=== PATIENT | male | born 1975 | race Caucasian/White ===

== ENCOUNTER 2017-02-06 17:45 | Emergency (ER) | payer OTHER | END 2017-02-06 20:00 | disposition home or self-care (01) | LOC: CED 17:45 | DX: T40.1X1A Poisoning by heroin, accidental (unintentional), initial encounter (principal); F17.200 Nicotine dependence, unspecified, uncomplicated | CPT/HCPCS: 99283 ==

== ENCOUNTER 2017-02-12 20:40 | Emergency (ER) | payer OTHER | END 2017-02-13 01:30 | disposition home or self-care (01) | LOC: CED 20:40 | DX: T40.1X1A Poisoning by heroin, accidental (unintentional), initial encounter (principal); F17.210 Nicotine dependence, cigarettes, uncomplicated | CPT/HCPCS: 99282 ==